=== PATIENT | male | born 1955 | race Caucasian/White ===

== ENCOUNTER 2017-06-11 19:15 | Emergency (ER) | payer BC ==
[2017-06-11] MEDS ORDERED: NORMAL SALINE 1000 ML 1,000 ML IV ONE (19:30)
--- NOTE | 2017-06-11 19:32 | ER Document Report ---
ED Medical Screen (RME) - General Chief Complaint: Diarrhea Stated Complaint: DIARRHEA Time Seen by Provider: 06/11/17 19:25 Notes: 62-year-old male patient reports he was not feeling very well yesterday morning , but did work. At 2 PM while eating lunch he developed watery diarrhea. It has persisted since yesterday. He has felt nauseous without vomiting. He was feeling weak this morning and has gotten worse throughout the day. He has taken 4 Imodium today without any relief. He is belching and passing gas per rectum. He does have some abdominal cramps occasionally. There is no history of fever. He reports that he has been drinking plenty of fluids throughout the day. I have greeted and performed a rapid initial assessment of this patient. A comprehensive ED assessment and evaluation of the patient, analysis of test results and completion of the medical decision making process will be conducted by additional ED providers. TRAVEL OUTSIDE OF THE [place] IN LAST 30 DAYS: No - Related Data Allergies/Adverse Reactions: No Known Allergies Allergy (Unverified 02/08/11 07:48) Past Medical History - Past Medical History Cardiac Medical History: Reports: Hx Hypertension Denies: Hx Coronary Artery Disease, Hx Heart Attack Pulmonary Medical History: Reports: Hx Pneumonia Denies: Hx Asthma, Hx Bronchitis, Hx COPD Neurological Medical History: Denies: Hx Cerebrovascular Accident, Hx Seizures Musculoskeltal Medical History: Denies Hx Arthritis Past Surgical History: - Immunizations Hx Diphtheria, Pertussis, Tetanus Vaccination: Yes Physical Exam - Vital signs Vitals: Temp Pulse Resp BP Pulse Ox 98.1 F 66 18 117/70 98 06/11/17 19:22 06/11/17 19:22 06/11/17 19:22 06/11/17 19:22 06/11/17 19:22 Course - Vital Signs Vital signs: Temp Pulse Resp BP Pulse Ox 98.1 F 66 18 117/70 98 06/11/17 19:22 06/11/17 19:22 06/11/17 19:22 06/11/17 19:22 06/11/17 19:22 - Laboratory Laboratory results interpreted by me: 06/11/17 19:30 Urine Blood SMALL H
[2017-06-11 19:45] LABS: APPEARANCE,URINE CLEAR; BILIRUBIN,URINE NEGATIVE (NEGATIVE); COLOR,URINE STRAW; GLUCOSE, URINE NEGATIVE (NEGATIVE); KETONES,URINE NEGATIVE (NEGATIVE); LEUKOCYTE ESTERASE,URINE NEGATIVE (NEGATIVE); NITRITE,URINE NEGATIVE (NEGATIVE); PROTEIN,URINE NEGATIVE (NEGATIVE); URINE SPECIFIC GRAVITY 1.003; UROBILINOGEN,URINE NEGATIVE mg/dL (<2.0)
[2017-06-11] MEDS ORDERED: ONDANSETRON HCL INJ/PF 4 MG/2 ML SDV IV ONE (20:07)
[2017-06-11 21:43] LABS: ABSOLUTE LYMPHOCYTES (AUTO) 1.1 10^3/uL (0.5-4.7); ABSOLUTE NEUT (AUTO) 4.7 10^3/uL (1.7-8.2); BASOPHILS % (AUTO) 0.4 % (0-2); EOSINOPHILS % (AUTO) 0.6 % (0-6); HEMATOCRIT 43.2 % (37.9-51.0); HEMOGLOBIN 14.8 g/dL (13.5-17.0); LYMPHOCYTES % (AUTO) 15.6 % (13-45); MEAN CORPUSCULAR HEMOGLOBIN 30.9 pg (27.0-33.4); MEAN CORPUSCULAR HGB CONC 34.3 g/dL (32.0-36.0); MEAN CORPUSCULAR VOLUME 90 fl (80-97); MONOCYTES % (AUTO) 14.9 % (3-13); PLATELET COUNT 126 10^3/uL (150-450); RED CELL DISTRIBUTION WIDTH 12.4 % (11.5-14.0); SEGMENTED NEUTROPHILS % (AUTO) 68.5 % (42-78); TOTAL CELLS COUNTED % (AUTO) 100 %; WHITE BLOOD COUNT 6.8 10^3/uL (4.0-10.5)
[2017-06-11 21:52] LABS: ALANINE AMINOTRANSFERASE 31 U/L (21-72); ALBUMIN 3.9 g/dL (3.5-5.0); ALKALINE PHOSPHATASE 60 U/L (38-126); ANION GAP 8 (5-19); ASPARTATE AMINO TRANSFERASE 22 U/L (17-59); BILIRUBIN,DIRECT 0.1 mg/dL (0.0-0.4); BILIRUBIN,TOTAL 0.6 mg/dL (0.2-1.3); BLOOD UREA NITROGEN 17 mg/dL (7-20); CARBON DIOXIDE 30 mmol/L (22-30); CHLORIDE 103 mmol/L (98-107); GLUCOSE 95 mg/dL (75-110); SODIUM 140.6 mmol/L (137-145); TOTAL PROTEIN 6.4 g/dL (6.3-8.2)
[2017-06-11] MEDS ORDERED: ONDANSETRON ODT 4 MG TAB (6 TAB/ER DISP) PO PRN (21:58)
[2017-06-11] MEDS ORDERED: DICYCLOMINE HCL INJ 20 MG/2 ML AMPULE IM ONE (22:00)
--- NOTE | 2017-06-11 22:00 | ER Document Report ---
ED General - General Chief Complaint: Diarrhea Stated Complaint: DIARRHEA Time Seen by Provider: 06/11/17 19:25 Notes: Patient is a 62-year-old male with past medical history of hypertension, hyperlipidemia, and insomnia who presents with 36 hours of diarrhea and lightheadedness. The patient restarts that yesterday afternoon he began to develop diarrhea and that has been persistent since that time. He states he became concerned when on multiple occasions today when he went from a sitting to standing position he became lightheaded and felt like he was going to pass out. He reports that he has not had any vomiting but has been somewhat nauseated. He notes that his lightheadedness has improved since he started drinking more fluids to try to keep up with his intake. No known sick contacts. No fever or constitutional symptoms. He denies any focal abdominal pain. Nothing seems to improve or worsen his symptoms. He has not seen his primary care doctor regarding today's concerns. He denies any recent history of similar symptoms. TRAVEL OUTSIDE OF THE [place] IN LAST 30 DAYS: No - Related Data Allergies/Adverse Reactions: No Known Allergies Allergy (Unverified 02/08/11 07:48) Past Medical History - General Information source: Patient - Social History Smoking Status: Never Smoker Frequency of alcohol use: None Drug Abuse: None Lives with: Spouse/Significant other Family History: Reviewed & Not Pertinent - Past Medical History Cardiac Medical History: Reports: Hx Hypertension Denies: Hx Coronary Artery Disease, Hx Heart Attack Pulmonary Medical History: Reports: Hx Pneumonia Denies: Hx Asthma, Hx Bronchitis, Hx COPD Neurological Medical History: Denies: Hx Cerebrovascular Accident, Hx Seizures Musculoskeltal Medical History: Denies Hx Arthritis Past Surgical History: - Immunizations Hx Diphtheria, Pertussis, Tetanus Vaccination: Yes Review of Systems - Review of Systems Notes: Constitutional: Negative for fever. HENT: Negative for sore throat. Eyes: Negative for visual changes. Cardiovascular: Negative for chest pain. Respiratory: Negative for shortness of breath. Gastrointestinal: Positive for abdominal cramps and diarrhea Genitourinary: Negative for dysuria. Musculoskeletal: Negative for back pain. Skin: Negative for rash. Neurological: Negative for headaches, weakness or numbness. 10 point ROS negative except as marked above and in HPI. Physical Exam - Vital signs Vitals: Temp Pulse Resp BP Pulse Ox 98.1 F 66 18 117/70 98 06/11/17 19:22 06/11/17 19:22 06/11/17 19:22 06/11/17 19:22 06/11/17 19:22 Interpretation: Normal Notes: PHYSICAL EXAMINATION: GENERAL: Well-appearing, well-nourished and in no acute distress. HEAD: Atraumatic, normocephalic. EYES: Pupils equal round and reactive to light, extraocular movements intact, sclera anicteric, conjunctiva are normal. ENT: nares patent, oropharynx clear without exudates. Moderately dry mucous membranes. NECK: Normal range of motion, supple without lymphadenopathy LUNGS: Breath sounds clear to auscultation bilaterally and equal. No wheezes rales or rhonchi. HEART: Regular rate and rhythm without murmurs ABDOMEN: Soft, nontender, normoactive bowel sounds. No guarding, no rebound. No masses appreciated. EXTREMITIES: Normal range of motion, no pitting or edema. No cyanosis. NEUROLOGICAL: No focal neurological deficits. Moves all extremities spontaneously and on command. PSYCH: Normal mood, normal affect. SKIN: Warm, Dry, normal turgor, no rashes or lesions noted. Course - Re-evaluation Re-evalutation: 06/11/17 21:59 Presentation of a very well-appearing 62-year-old male in no acute distress, vitals within normal limits complaining of diarrhea and orthostatic hypotension. Patient is without any focal tenderness on abdominal examination denies any abdominal pain except for cramping before diarrheal bowel movements. He has not had any bloody diarrhea, denies any fever, and has been able to tolerate oral intake without difficulty. Labs unremarkable. Patient has not been able to provide a stool sample here in the emergency department. Suspect likely viral origin although a bacterial colitis remains in the differential. I have prescribed the patient ciprofloxacin which he can use if his diarrhea persists for greater than 7 days in totality. At this time will discharge with return precautions and follow-up recommendations. Verbal discharge instructions given a the bedside and opportunity for questions given. Medication warnings reviewed. Patient is in agreement with this plan and has verbalized understanding of return precautions and the need for primary care follow-up in the next 24-72 hours. - Vital Signs Vital signs: Temp Pulse Resp BP Pulse Ox 98.5 F 54 L 18 123/71 100 06/11/17 23:57 06/11/17 23:57 06/11/17 23:57 06/11/17 23:57 06/11/17 23:57 - Laboratory Result Diagrams: 06/11/17 21:25 06/11/17 21:25 Laboratory results interpreted by me: 06/11/17 06/11/17 19:30 21:25 Plt Count 126 L Monocytes % 14.9 H Urine Blood SMALL H Discharge - Discharge Clinical Impression: Dehydration Diarrhea Qualifiers: Diarrhea type: presumed infectious Qualified Code(s): R19.7 - Diarrhea, unspecified Condition: Good Disposition: HOME, SELF-CARE Additional Instructions: You were seen today for diarrhea and dehydration. Your symptoms are likely due to an infection, most likely viral in origin. If you have ongoing diarrhea for greater than 7 days total you may take the antibiotic that has been prescribed. Please do avoid taking sooner as this could worsen your diarrhea if your diarrhea is caused by a virus instead of bacteria. You have also been sent home with Zofran that you can use as needed for nausea. Return if you have fever of greater than 101F develop persistent vomiting, have worsening of your symptoms, or have any other symptoms that are worrisome to you. Prescriptions: Ciprofloxacin HCl [Cipro 500 mg Tablet] 500 mg PO BID #6 tablet Referrals: KOFFI TOMLINSON MD [Primary Care Provider] - Follow up as needed
[2017-06-12 00:10] VITALS: BP 123/71
== END 2017-06-12 00:10 | disposition home or self-care (01) ==
LOC: ER 19:15
DX: R19.7 Diarrhea, unspecified (principal); R42 Dizziness and giddiness; E86.0 Dehydration; I10 Essential (primary) hypertension; R11.0 Nausea; R10.9 Unspecified abdominal pain
CPT/HCPCS: 99284; 96372; 96361; 96374; 36415; 85025; 80053; 81001; J0500; J2405; J7030

== ENCOUNTER 2017-11-28 01:51 | Emergency (ER) | payer BC ==
[2017-11-28 02:53] LABS: ABSOLUTE BASOPHILS # (AUTO) 0.1 10^3/uL (0.0-0.2); ABSOLUTE EOSINOPHILS # (AUTO) 0.2 10^3/uL (0.0-0.6); ABSOLUTE LYMPHOCYTES (AUTO) 2.1 10^3/uL (0.5-4.7); ABSOLUTE MONOCYTES (AUTO) 0.7 10^3/uL (0.1-1.4); ABSOLUTE NEUT (AUTO) 2.9 10^3/uL (1.7-8.2); EOSINOPHILS % (AUTO) 3.9 % (0-6); HEMOGLOBIN 13.8 g/dL (13.5-17.0); MEAN CORPUSCULAR HEMOGLOBIN 30.9 pg (27.0-33.4); MEAN CORPUSCULAR HGB CONC 34.6 g/dL (32.0-36.0); MEAN CORPUSCULAR VOLUME 90 fl (80-97); MONOCYTES % (AUTO) 11.5 % (3-13); PLATELET COUNT 152 10^3/uL (150-450); RED BLOOD COUNT 4.47 10^6/uL (4.35-5.55); RED CELL DISTRIBUTION WIDTH 12.7 % (11.5-14.0); SEGMENTED NEUTROPHILS % (AUTO) 48.6 % (42-78); TOTAL CELLS COUNTED % (AUTO) 100 %
[2017-11-28 03:05] LABS: APPEARANCE,URINE CLEAR; BILIRUBIN,URINE NEGATIVE (NEGATIVE); COLOR,URINE YELLOW; GLUCOSE, URINE NEGATIVE (NEGATIVE); KETONES,URINE NEGATIVE (NEGATIVE); LEUKOCYTE ESTERASE,URINE NEGATIVE (NEGATIVE); NITRITE,URINE NEGATIVE (NEGATIVE); PROTEIN,URINE NEGATIVE (NEGATIVE); URINE SPECIFIC GRAVITY 1.013
[2017-11-28 03:09] LABS: ALANINE AMINOTRANSFERASE 29 U/L (21-72); ALBUMIN 3.9 g/dL (3.5-5.0); ALKALINE PHOSPHATASE 55 U/L (38-126); ANION GAP 8 (5-19); ASPARTATE AMINO TRANSFERASE 24 U/L (17-59); BILIRUBIN,DIRECT 0.4 mg/dL (0.0-0.4); BILIRUBIN,TOTAL 0.6 mg/dL (0.2-1.3); BLOOD UREA NITROGEN 24 mg/dL (7-20); CALCIUM 8.9 mg/dL (8.4-10.2); CARBON DIOXIDE 29 mmol/L (22-30); CHLORIDE 101 mmol/L (98-107); CREATINE KINASE 138 U/L (55-170); GLUCOSE 96 mg/dL (75-110); POTASSIUM 4.3 mmol/L (3.6-5.0); SODIUM 137.9 mmol/L (137-145); TOTAL PROTEIN 6.7 g/dL (6.3-8.2)
[2017-11-28 03:28] LABS: CREATINE KINASE MB 1.94 ng/mL (<4.55)
[2017-11-28] MEDS ORDERED: RINGERS SOLUTION,LACTATED 1,000 ML IV ONE (03:29)
[2017-11-28 03:31] LABS: TROPONIN I < 0.012 ng/mL
[2017-11-28] MEDS ORDERED: NORMAL SALINE 1000 ML 1,000 ML IV PRN (04:00)
--- NOTE | 2017-11-28 04:02 | ER Document Report ---
ED General - General Chief Complaint: Near Syncope Stated Complaint: FEELING FAINT Time Seen by Provider: 11/28/17 03:28 TRAVEL OUTSIDE OF THE [place] IN LAST 30 DAYS: No - HPI Notes: Patient is a 62-year-old male with a history of hypertension who presents to the ED complaining of generalized fatigue and getting lightheaded with near syncope episode last evening. Patient states that he has gone through similar symptoms previously, but was starting to feel better over the last 3 weeks until yesterday. Patient states that he is still eating and drinking without any difficulties. Patient states that he is urinating normally and having normal bowel movements. He does reports being on a beta-dell, but stating that his heart rate is typically low and his blood pressure has been lower recently prompting his family doctor to start cutting back on some of the blood pressure medicines that he is on currently. Patient states that he did not take his Coreg last night, but has been taking it daily for years. Patient states that on occasion he will feel some palpitations, but otherwise no other significant cardiopulmonary medical history. Denies any drug allergies. Denies any smoking, drug use. Denies any headache, fever, neck pain, changes in vision/speech/mentation/hearing, URI, sore throat, chest pain, syncope, cough , shortness of breath, wheeze, dyspnea, abdominal pain, nausea/vomiting/diarrhea , urinary retention, dysuria, hematuria, loss of control of bowel or bladder, numbness/tingling, saddle anesthesia, muscle paralysis, or rash. - Related Data Allergies/Adverse Reactions: No Known Allergies Allergy (Unverified 02/08/11 07:48) Past Medical History - Social History Smoking Status: Never Smoker Family History: Reviewed & Not Pertinent - Past Medical History Cardiac Medical History: Reports: Hx Hypertension Denies: Hx Coronary Artery Disease, Hx Heart Attack Pulmonary Medical History: Reports: Hx Pneumonia Denies: Hx Asthma, Hx Bronchitis, Hx COPD Neurological Medical History: Denies: Hx Cerebrovascular Accident, Hx Seizures Renal/ Medical History: Denies: Hx Peritoneal Dialysis Musculoskeletal Medical History: Denies Hx Arthritis Past Surgical History: Reports: Hx Tonsillectomy - Immunizations Hx Diphtheria, Pertussis, Tetanus Vaccination: Yes Review of Systems - Review of Systems -: Yes All other systems reviewed and negative Physical Exam - Vital signs Vitals: Temp Pulse Resp BP Pulse Ox 97.8 F 50 L 20 108/71 98 11/28/17 02:08 11/28/17 02:08 11/28/17 02:08 11/28/17 02:08 11/28/17 02:08 - Notes Notes: PHYSICAL EXAMINATION: GENERAL: Well-appearing, well-nourished and in no acute distress. A&Ox4. Answers questions appropriately. HEAD: Atraumatic, normocephalic. Non-tender. EYES: Pupils equal round and reactive to light, extraocular movements intact, sclera anicteric, conjunctiva are normal. No nystagmus. vis araiza intact. ENT: Nares patent and without discharge. oropharynx clear without exudates. No tonsilar hypertrophy or erythema. Moist mucous membranes. No sinus tenderness. NECK: Normal range of motion, supple without lymphadenopathy. No rigidity/ meningismus. No midline tenderness. LUNGS: Breath sounds clear to auscultation bilaterally and equal. No wheezes rales or rhonchi. HEART: Regular rate and rhythm without murmurs, rubs, gallops. ABDOMEN: Soft, nontender, nondistended abdomen. No guarding, no rebound. Normal bowel sounds present. No CVA tenderness bilaterally. Musculoskeletal: Ext b/l: FROM to passive/active. Strength 5+/5. No deficits noted. No bony tenderness of extremities. Extremities: No cyanosis, clubbing, or edema b/l. Peripheral pulses 2+. Capillary refill less than 2 seconds. NEUROLOGICAL: NIH 0. GCS 15. Cranial nerves grossly intact. Normal speech, normal gait. Normal sensory, motor exams. Reflexes 2+ b/l. ARABELLA's negative. Pronator drift negative. Heel/hernández, finger/nose wnl. PSYCH: Normal mood, normal affect. SKIN: Warm, Dry, normal turgor, no rashes or lesions noted. Course - Re-evaluation Re-evalutation: 11/28/17 06:[address] Ferrara who is in agreement with dispo/plan: Patient is an afebrile, well-hydrated, 62yo male who presents to the ED with generalized fatigue, suspect secondary to his blood pressure medications. Vitals are currently acceptable, but patient has been bradycardic. Patient's blood pressure has been maintaining with a map >65. PE is otherwise unremarkable for any focal neurological deficits. Patient was given fluids. Orthostatics negative. Patient has remained comfortable throughout his stay. Patient states that overall he feels better than he did, but still feels "sluggish." Patient is able to ambulate around the room without any difficulties recurrence of symptoms. Patient is nontoxic-appearing and is tolerating p.o. without any difficulties. CBC, CMP, EKG/cardiac enzymes 2, urine drug screen are all unremarkable for any acute pathology. Patient does not have any chest pain, dyspnea, or shortness of breath. Patient's presentation and symptomatology creates low suspicion for ACS, PE, pneumothorax , pericarditis, dissection, respiratory compromise, severe dehydration, sepsis, meningitis, acute intracranial pathology, or other systemic emergent condition at this time. Patient is aware that his condition can change from initial presentation and he needs to monitor symptoms closely and seek medical attention for any acute changes. Pt is to stop corgard. Recommend conservative measures for symptoms. Recheck with your PCM in 1-2 days as able to get his HR and BP re-evaluated. Consider consult with Cardiology. Return to the ED with any worsening/concerning symptoms otherwise as reviewed in discharge. Patient is in agreement. - Vital Signs Vital signs: Temp Pulse Resp BP Pulse Ox 97.8 F 53 L 13 98/62 L 97 11/28/17 02:08 11/28/17 04:24 11/28/17 05:01 11/28/17 05:01 11/28/17 05:01 - Laboratory Result Diagrams: 11/28/17 02:37 11/28/17 02:37 Laboratory results interpreted by me: 11/28/17 11/28/17 02:37 02:37 BUN 24 H Urine Urobilinogen 2.0 H Discharge - Discharge Clinical Impression: Bradycardia Fatigue Qualifiers: Fatigue type: unspecified Qualified Code(s): R53.83 - Other fatigue Condition: Stable Disposition: HOME, SELF-CARE Additional Instructions: We believe that most of your symptoms are being attributed to all of your blood pressure medications. You are to stop Corgard at this time until further evaluation with your family doctor. Maintain adequate fluid and food intake Take home medications as directed healthy diet Monitor blood pressure daily and keep a log Monitor symptoms for any acute changes Recheck with your PCM in 1-2 days Consider a follow-up with cardiology Return to the ED with any worsening symptoms and/or development of fever, headache, chest pain, palpitations, syncope, shortness of breath, trouble breathing, abdominal pain, n/v/d, blood in stool/urine, loss of control of bowel /bladder, urinary retention, muscle weakness/paralysis, numbness/tingling, or other worsening symptoms that are concerning to you. Referrals: KOFFI TOMLINSON MD [Primary Care Provider] - Follow up tomorrow
[2017-11-28 04:47] LABS: URINE AMPHETAMINES SCREEN NEGATIVE; URINE BARBITURATES SCREEN NEGATIVE; URINE BENZODIAZEPINES SCREEN NEGATIVE; URINE COCAINE SCREEN NEGATIVE; URINE MARIJUANA (THC) SCREEN NEGATIVE; URINE METHADONE SCREEN NEGATIVE; URINE PHENCYCLIDINE SCREEN NEGATIVE
[2017-11-28] MEDS ORDERED: NORMAL SALINE 1000 ML 1,000 ML IV ONE (06:03)
[2017-11-28 06:11] VITALS: BP 114/67
--- NOTE | 2017-11-28 16:56 | EKG REPORT ---
SEVERITY:- ABNORMAL ECG - SINUS BRADYCARDIA ATRIAL PREMATURE COMPLEX LEFT ANTERIOR FASCICULAR BLOCK BORDERLINE T ABNORMALITIES, INFERIOR LEADS : Confirmed by: Danae Mason MD 28-Nov-2017 16:55:53
== END 2017-11-28 07:20 | disposition home or self-care (01) ==
LOC: ER 01:51
DX: R00.1 Bradycardia, unspecified (principal); R53.83 Other fatigue; R55 Syncope and collapse; I10 Essential (primary) hypertension; Z79.899 Other long term (current) drug therapy
CPT/HCPCS: 36415; 80053; 80307; 81001; 82550; 82553; 84484; 85025; 93005; 93010; 96360; 96361; 99284

== ENCOUNTER → 2019-02-15 | Outpatient (CLI) | payer BC ==
[2019-02-15 10:30] LABS: ABSOLUTE BASOPHILS # (AUTO) 0.1 10^3/uL (0.0-0.2); ABSOLUTE EOSINOPHILS # (AUTO) 0.1 10^3/uL (0.0-0.6); ABSOLUTE LYMPHOCYTES (AUTO) 1.8 10^3/uL (0.5-4.7); ABSOLUTE MONOCYTES (AUTO) 0.7 10^3/uL (0.1-1.4); ABSOLUTE NEUT (AUTO) 3.9 10^3/uL (1.7-8.2); BASOPHILS % (AUTO) 0.9 % (0-2); EOSINOPHILS % (AUTO) 1.6 % (0-6); HEMATOCRIT 41.7 % (37.9-51.0); HEMOGLOBIN 14.7 g/dL (13.5-17.0); LYMPHOCYTES % (AUTO) 27.3 % (13-45); MEAN CORPUSCULAR HEMOGLOBIN 31.3 pg (27.0-33.4); MEAN CORPUSCULAR HGB CONC 35.3 g/dL (32.0-36.0); MEAN CORPUSCULAR VOLUME 89 fl (80-97); MONOCYTES % (AUTO) 10.9 % (3-13); PLATELET COUNT 145 10^3/uL (150-450); RED CELL DISTRIBUTION WIDTH 12.8 % (11.5-14.0); SEGMENTED NEUTROPHILS % (AUTO) 59.3 % (42-78); TOTAL CELLS COUNTED % (AUTO) 100 %; WHITE BLOOD COUNT 6.6 10^3/uL (4.0-10.5)
[2019-02-15 10:52] LABS: ALBUMIN 4.3 g/dL (3.5-5.0); ALKALINE PHOSPHATASE 61 U/L (38-126); ANION GAP 11 (5-19); ASPARTATE AMINO TRANSFERASE 25 U/L (17-59); BILIRUBIN,DIRECT 0.1 mg/dL (0.0-0.4); BILIRUBIN,TOTAL 0.6 mg/dL (0.2-1.3); BLOOD UREA NITROGEN 22 mg/dL (7-20); CALCIUM 9.1 mg/dL (8.4-10.2); CARBON DIOXIDE 28 mmol/L (22-30); CHLORIDE 101 mmol/L (98-107); GLUCOSE 96 mg/dL (75-110); POTASSIUM 4.1 mmol/L (3.6-5.0); TOTAL PROTEIN 7.3 g/dL (6.3-8.2); TRIGLYCERIDES 144 mg/dL (<150)
[2019-02-15 11:03] LABS: DIRECT LDL 75 mg/dL (<100)
== END ==
LOC: OD 09:25
PROVIDERS: ATTEND Family Medicine Geriatric Medicine
DX: I10 Essential (primary) hypertension (principal); E78.5 Hyperlipidemia, unspecified; K21.9 Gastro-esophageal reflux disease without esophagitis; Z79.899 Other long term (current) drug therapy
CPT/HCPCS: 36415; 80053; 80061; 85025

== ENCOUNTER → 2019-05-06 | Outpatient (CLI) | payer BC ==
--- NOTE | 2019-05-06 16:17 | RADIOLOGY REPORT (SQ) ---
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 TECHNIQUE: Static and realtime jay scale imaging of the scrotum and testes. Selected color Doppler and spectral images recorded to document blood flow. LIMITATIONS: None. FINDINGS: RIGHT: TESTICLE: The right testicle measures 3.7 x 2.5 x 3.2 cm. The echotexture of the testicular parenchy ma is homogeneous and on Doppler there is intact arterial inflow and venous outflow within it. There is no testicular mass. EPIDIDYMIS: The epididymis measures 1 x 1.4 x 1.2 cm. There is no hypervascularity on Doppler. HYDROCELE OR VARICOCELE: Small hydrocele with low-level internal echoes and varicocele lateral to the testicle. HERNIA OR EXTRA-TESTICULAR MASS: No. OTHER: No other finding. LEFT: TESTICLE: The left testicle measures 3.8 x 3 x 3.2 cm. The echotexture of the testicular parenchyma is homogeneous and on Doppler there is intact arterial inflow and venous outflow within it. There is no testicular mass. EPIDIDYMIS: The epididymis measures 0.9 x 1 x 1.5 cm. There is no hypervascularity on Doppler. HYDROCELE OR VARICOCELE: Small hydrocele with low-level internal echoes and varicocele. HERNIA OR EXTRA-TESTICULAR MASS: No. OTHER: No other finding. IMPRESSION: 1. No evidence of testicular torsion or epididymitis. 2. Small bilateral hydroceles with low level internal echoes. 3. Bilateral varicoceles. TECHNICAL DOCUMENTATION: JOB ID: [id number] 2010 [employer]- All Rights Reserved Reading location - IP/workstation name: [email or web address]
== END ==
LOC: RAD 15:10
PROVIDERS: ATTEND Urology
DX: N47.7 Other inflammatory diseases of prepuce (principal); N50.819 Testicular pain, unspecified; N40.1 Benign prostatic hyperplasia with lower urinary tract symptoms; N43.3 Hydrocele, unspecified; I86.1 Scrotal varices
CPT/HCPCS: 76870; 93976

== ENCOUNTER → 2019-08-29 | Outpatient (CLI) | payer BC | LOC: OD 13:33 | PROVIDERS: ATTEND Family Medicine Geriatric Medicine | DX: A69.20 Lyme disease, unspecified (principal) | CPT/HCPCS: 36415; 86617; 86618 ==

== ENCOUNTER → 2019-11-08 | Outpatient (CLI) | payer BC ==
[2019-11-08 12:18] LABS: ABSOLUTE BASOPHILS # (AUTO) 0.1 10^3/uL (0.0-0.2); ABSOLUTE EOSINOPHILS # (AUTO) 0.1 10^3/uL (0.0-0.6); ABSOLUTE LYMPHOCYTES (AUTO) 1.6 10^3/uL (0.5-4.7); ABSOLUTE MONOCYTES (AUTO) 0.6 10^3/uL (0.1-1.4); ABSOLUTE NEUT (AUTO) 2.6 10^3/uL (1.7-8.2); BASOPHILS % (AUTO) 1.4 % (0-2); EOSINOPHILS % (AUTO) 1.8 % (0-6); HEMATOCRIT 39.7 % (37.9-51.0); HEMOGLOBIN 13.9 g/dL (13.5-17.0); LYMPHOCYTES % (AUTO) 32.3 % (13-45); MEAN CORPUSCULAR HEMOGLOBIN 31.5 pg (27.0-33.4); MEAN CORPUSCULAR HGB CONC 35.1 g/dL (32.0-36.0); MEAN CORPUSCULAR VOLUME 90 fl (80-97); MONOCYTES % (AUTO) 11.3 % (3-13); PLATELET COUNT 137 10^3/uL (150-450); RED BLOOD COUNT 4.42 10^6/uL (4.35-5.55); RED CELL DISTRIBUTION WIDTH 12.7 % (11.5-14.0); SEGMENTED NEUTROPHILS % (AUTO) 53.2 % (42-78); TOTAL CELLS COUNTED % (AUTO) 100 %; WHITE BLOOD COUNT 4.9 10^3/uL (4.0-10.5)
[2019-11-08 12:46] LABS: ALBUMIN 4.1 g/dL (3.5-5.0); ALKALINE PHOSPHATASE 56 U/L (38-126); ANION GAP 9 (5-19); ASPARTATE AMINO TRANSFERASE 25 U/L (17-59); BILIRUBIN,DIRECT 0.3 mg/dL (0.0-0.4); BILIRUBIN,TOTAL 0.9 mg/dL (0.2-1.3); BLOOD UREA NITROGEN 20 mg/dL (7-20); CALCIUM 8.8 mg/dL (8.4-10.2); CARBON DIOXIDE 25 mmol/L (22-30); CHLORIDE 105 mmol/L (98-107); CHOLESTEROL 107.97 mg/dL (0-200); GLUCOSE 102 mg/dL (75-110); POTASSIUM 4.1 mmol/L (3.6-5.0); TOTAL PROTEIN 6.6 g/dL (6.3-8.2); TRIGLYCERIDES 136 mg/dL (<150)
[2019-11-08 12:58] LABS: DIRECT LDL 61 mg/dL (<100)
== END ==
LOC: OD 11:06
PROVIDERS: ATTEND Family Medicine Geriatric Medicine
DX: I10 Essential (primary) hypertension (principal); E78.5 Hyperlipidemia, unspecified; Z79.899 Other long term (current) drug therapy
CPT/HCPCS: 36415; 80053; 80061; 85025

== ENCOUNTER → 2020-02-10 | Outpatient (CLI) | payer BC ==
[2020-02-10 10:42] LABS: ABSOLUTE EOSINOPHILS # (AUTO) 0.1 10^3/uL (0.0-0.6); ABSOLUTE LYMPHOCYTES (AUTO) 1.5 10^3/uL (0.5-4.7); ABSOLUTE MONOCYTES (AUTO) 0.6 10^3/uL (0.1-1.4); ABSOLUTE NEUT (AUTO) 3.4 10^3/uL (1.7-8.2); BASOPHILS % (AUTO) 0.8 % (0-2); EOSINOPHILS % (AUTO) 2.3 % (0-6); HEMATOCRIT 39.9 % (37.9-51.0); HEMOGLOBIN 13.9 g/dL (13.5-17.0); LYMPHOCYTES % (AUTO) 26.8 % (13-45); MEAN CORPUSCULAR HEMOGLOBIN 30.9 pg (27.0-33.4); MEAN CORPUSCULAR HGB CONC 34.8 g/dL (32.0-36.0); MEAN CORPUSCULAR VOLUME 89 fl (80-97); MONOCYTES % (AUTO) 10.1 % (3-13); PLATELET COUNT 122 10^3/uL (150-450); RED BLOOD COUNT 4.49 10^6/uL (4.35-5.55); RED CELL DISTRIBUTION WIDTH 12.7 % (11.5-14.0); TOTAL CELLS COUNTED % (AUTO) 100 %; WHITE BLOOD COUNT 5.7 10^3/uL (4.0-10.5)
[2020-02-11 14:49] LABS: LYME DISEASE IGM AB <0.80 index (0.00-0.79)
== END ==
LOC: OD 10:11
PROVIDERS: ATTEND Family Medicine Geriatric Medicine
DX: D69.6 Thrombocytopenia, unspecified (principal); Z79.899 Other long term (current) drug therapy
CPT/HCPCS: 36415; 85025; 86617; 86618

== ENCOUNTER → 2020-02-29 | Outpatient (CLI) | payer BC ==
--- NOTE | 2020-02-29 11:47 | ER RDC ASSESSMENT REPORT ---
Intake - In the Last 14 days Have you traveled outside [place]?: No Have you been in close contact with someone CONFIRMED: No Worked in Healthcare?: No - Symptoms Subjective Fever([place] feverish): No Chills: No Muscule Aches: Yes Runny Nose: No Sore Throat: No Cough (New or worsening chronic cough): Yes Shortness of breath: No Nausea or Vomiting: Yes Headache: No Abdominal Pain: No Diarrhea(3 or more loose stools in last 24 hours): Yes - Do you have any of the following Chronic lung disease: Asthma or emphysema or COPD: No Cystic Fibrosis: No Diabetes: No High Blood Pressure: Yes Cardiovascular Disease: No Chronic Kidney Disease: No Chronic Liver Disease: No Chronic blood disorder like Sickle Cell Disease: No Weak immune system due to disease or medication: No Neurologic condition that limits movement: No Developmental delay - Moderate to Severe: No Recent (within past 2 weeks) or current : No Morbid Obesity (>100 pounds over ideal weight): No - Objective Temperature: 98.0 F Pulse Rate: 52 Respiratory Rate: 18 Blood Pressure: 164/81 O2 Sat by Pulse Oximetry: 97 Objective: Patient is a well-appearing 65-year-old male, who presents today for COVID-19 screening. Disposition: Home; Selfcare General - General Stated Complaint: Upper respiratory symptoms Mode of Arrival: Ambulatory Information source: Patient Notes: The patient was evaluated during the global COVID-19 pandemic. That diagnosis was suspected/considered upon initial presentation. Their evaluation, treatment, and testing was consistent with current guidelines for patients who present with complaints or symptoms that may be related to COVID-19. - HPI Patient complains to provider of: Upper respiratory symptoms Onset: Last week Onset/Duration: Constant, Persistent Quality of pain: Achy Severity: Mild Pain Level: 2 Context: Generalized body aches. Associated symptoms: Body/muscle aches, Nonproductive cough, Diarrhea, Nausea, Other - Abdominal pain, and loss of sense of taste and smell Exacerbated by: Denies Relieved by: Denies Similar symptoms previously: No Recently seen / treated by doctor: No - Related Data Allergies/Adverse Reactions: No Known Allergies Allergy (Unverified 02/08/11 07:48) Past Medical History - General Information source: Patient - Social History Smoking Status: Never Smoker Cigarette use (# per day): No Chew tobacco use (# tins/day): No Smoking Education Provided: No Frequency of alcohol use: Occasional Drug Abuse: None Occupation: Self-employed Lives with: Family Family History: Reviewed & Not Pertinent Patient has suicidal ideation: No Patient has homicidal ideation: No - Past Medical History Cardiac Medical History: Reports: Hx Hypertension Denies: Hx Coronary Artery Disease, Hx Heart Attack Pulmonary Medical History: Reports: Hx Pneumonia Denies: Hx Asthma, Hx Bronchitis, Hx COPD Neurological Medical History: Denies: Hx Cerebrovascular Accident, Hx Seizures Renal/ Medical History: Denies: Hx Peritoneal Dialysis Musculoskeletal Medical History: Denies Hx Arthritis Past Surgical History: Reports: Hx Tonsillectomy Physical Exam - General General appearance: Appears well In distress: None Notes: PHYSICAL EXAMINATION: GENERAL: Well-appearing with No Acute Distress noted. HEAD: Atraumatic, Normocephalic. EYES: Sclera anicteric, Conjunctiva are pink and moist. ENT: Nares patent. Moist mucous membranes. NECK: Normal range of motion, supple without lymphadenopathy. LUNGS: CTAB and equal. No wheezes rales or rhonchi. HEART: Regular rate and rhythm without murmurs. ABDOMEN: Soft, nontender, normal bowel sounds, no guarding. EXTREMITIES: Normal range of motion, no pitting edema. No cyanosis. BACK: No midline or CVA tenderness. No step-off or deformity. NEUROLOGICAL: Cranial nerves grossly intact. Normal speech. Normal gait. PSYCH: Calm, Cooperative, and answers questions appropriately. Normal mood and affect. SKIN: Warm, Dry, Normal color and Turgor, No obvious lesions or rash noted. Diagnostic Results Laboratory Results: Patient advised at this time they are considered a Person Under Investigation (PUI) for the COVID-19 Coronavirus. They have been made aware it is currently taking 3 to 5 days to receive their results. Patient advised The [facility] Department will call to notify them of a POSITIVE result, and an [facility] call center team leader will call to notify them of a NEGATIVE result. Patient Education/Counseling Counseling/Education: Patient presents with upper respiratory symptoms worrisome for possible COVID- 19. Patient does not have symptoms worrisome as an emergency such as difficulty breathing, shortness of breath, chest pain, pressure, confusion or cyanosis. Patient appears suitable for discharge. Patient's vital signs are stable and patient is nontoxic in appearance. Good return precautions have been discussed with patient, patient verbalized understanding and is agreeable with discharge plan of care at this time. Patient provided COVID-19 discharge instructions to include: As a person under investigation for COVID-19, the [facility], division of public health advises you to adhere to the following guidance until your test results are reported to you. If your test result is positive, you will receive additional information from your provider and your local health department at that time. Remain at home until you are cleared by the health provider or public health authorities. Keep a log of visitors to your home, notify any visitors to your home of your isolation status. If you plan to move to a new address or leave the county, notify the local health department in your County. Call your doctor or seek care if you have an urgent medical need. Before seeking medical care, call ahead to get instructions from the provider before arriving at the medical office clinic or hospital. Notify them that you are being tested for the virus that causes COVID-19 so that arrangements can be made, as necessary, to prevent transmission to others in the healthcare setting. Next, notify the local health department in your county. If a medical emergency arises and you need to call 911, inform dispatch and the first responders that you are being tested for the virus that causes COVID-19. Next, notify the local health department in your county. Guidance for worsening S/SX: For worsening symptoms, patient has been advised to contact their Primary Care Provider, or go to the nearest Emergency Department. RDC Discharge - Discharge Clinical Impression: COVID-19 Screening URI (upper respiratory infection) Qualifiers: URI type: unspecified URI Qualified Code(s): J06.9 - Acute upper respiratory infection, unspecified Condition: Stable Disposition: Home; Selfcare
[2020-02-29 12:31] VITALS: BP 164/81
== END ==
LOC: RDC 11:17
PROVIDERS: ATTEND Nurse Practitioner Family
DX: U07.1 COVID-19 (principal); J06.9 Acute upper respiratory infection, unspecified; R05 Cough; M79.10 Myalgia, unspecified site; R11.0 Nausea; R10.9 Unspecified abdominal pain; R19.7 Diarrhea, unspecified; R43.8 Other disturbances of smell and taste; I10 Essential (primary) hypertension; Z87.01 Personal history of pneumonia (recurrent)
CPT/HCPCS: U0003; C9803; 87635; 99201; 99211